=== PATIENT | female | born 2000 | race Two or more races ===

== ENCOUNTER 2024-04-14 17:21 | Inpatient (IN) | payer OTHER ==
[~2024-04-14] VITALS: Ht 167.6 cm; Wt 3.6 kg
[2024-04-14 17:27] VITALS: BP 131/75
[2024-04-14 17:50] LABS: PH,URINE 6.5 (5.0-8.0); URINE APPEARANCE Cloudy; URINE BILIRRUBIN Negative (NEGATIVE); URINE BLOOD Negative; URINE COLOR Yellow; URINE KETONE Negative (NEGATIVE); URINE LEUKOCYTE Large; URINE NITRATE Negative; URINE PROTEIN Negative (NEGATIVE); URINE UROBILINOGEN 0.2 E.U./dl
[2024-04-14 17:53] LABS: HEMATOCRIT 36.6 % (36.0-45.00); HEMOGLOBIN 12.2 g/dL (12.0-15.00); MEAN CORPUSCULAR HEMOGLOBIN 28.1 pg (27.00-32.0); MEAN CORPUSCULAR HGB CONC 33.4 g/dl (32.0-36.0); PLATELET COUNT 215 K/uL (150-450); RED BLOOD COUNT 4.35 M/uL (4.00-6.00); RED CELL DISTRIBUTION WIDTH 13.1 % (11.5-14.5)
[2024-04-14] MEDS ORDERED: PRENATAL TABLE1 EAC1 PO (17:55)
[2024-04-14 17:59] LABS: URINE BACTERIA 1536.8 uL (0.0-1933); URINE EPITHELIAL CELLS 31.2 uL (0.0-38.8); URINE WBC 130.4 uL (0.0-23.2)
[2024-04-14 18:00] LABS: URINE CAST 0.61 uL (0.0-1.40); URINE GLUCOSE 500 MG/DL (NEGATIVE); URINE RBC 1.9 uL (0.0-20.8)
[2024-04-14 18:13] LABS: ALBUMIN 2.9 gm/dL (3.4-5.0); BILIRUBIN TOTAL 0.21 mg/dL (0.3-1.2); CREATININE SERUM 0.59 mg/dL (0.55-1.02); GFR 126.31; GLOBULINA 3.6 G/DL (2.4-3.5); POTASSIUM 3.75 mEq/L (3.5-5.1); TOTAL PROTEIN 6.5 gm/dL (6.4-8.2)
[2024-04-14 18:18] LABS: INR 0.96; PARTIAL THROMBOPLASTIN TIME 26.2 SECONDS (22.0-34.0); PROTHROMBIN TIME 10.5 SECONDS (9.0-11.5)
[2024-04-14 21:15] VITALS: BP 136/76
[2024-04-14] MEDS ORDERED: RINGERS SOLUTION,LACTATED 1,000 ML IV SCH (23:15)
[2024-04-14 23:22] VITALS: BP 137/71
[2024-04-15 03:08] VITALS: BP 120/63
[2024-04-15 07:33] VITALS: BP 140/71
[2024-04-15 11:14] VITALS: BP 120/71
[2024-04-15] MEDS ORDERED: KETOROLAC TROMETHAMINE 60 MG VIAL IM STA (14:51)
[2024-04-15] MEDS ORDERED: RINGERS SOLUTION,LACTATED 1,000 ML IV SCH (15:00)
[2024-04-15] MEDS ORDERED: CHLORHEXIDINE GLUCONATE 120 ML BOTTLE TOP NR (15:00)
[2024-04-15] MEDS ORDERED: PROMETHAZINE HCL 25 MG/ML AMPUL IM PRN (15:00)
[2024-04-15] MEDS ORDERED: MEPERIDINE HCL/PF 50 MG/ML VIAL IM PRN (15:00)
[2024-04-15] MEDS ORDERED: OXYTOCIN 1,000 ML IV SCH (15:00)
[2024-04-15] MEDS ORDERED: MORPHINE SULFATE 4 MG/ML VIAL IV ONE (15:55)
[2024-04-15] MEDS ORDERED: ERYTHROMYCIN BASE OPHT 1GM EACH TUBE OP ONE (16:00)
[2024-04-15] MEDS ORDERED: OXYTOCIN 10 UNITS/ML VIAL IV ONE (16:00)
[2024-04-15] MEDS ORDERED: CEFOXITIN SODIUM 2,000 MG VIAL IV ONE (16:00)
[2024-04-15 16:57] VITALS: BP 123/77
[2024-04-15 19:56] LABS: HEMATOCRIT 36.9 % (36.0-45.00); HEMOGLOBIN 12.4 g/dL (12.0-15.00); MEAN CELL VOLUME 83.4 fL (80.00-100.00); MEAN CORPUSCULAR HEMOGLOBIN 27.9 pg (27.00-32.0); MEAN CORPUSCULAR HGB CONC 33.5 g/dl (32.0-36.0); PLATELET COUNT 184 K/uL (150-450); RED BLOOD COUNT 4.43 M/uL (4.00-6.00); RED CELL DISTRIBUTION WIDTH 13.4 % (11.5-14.5)
[2024-04-15 20:00] VITALS: BP 110/70
[2024-04-16 01:24] VITALS: BP 118/77
[2024-04-16] MEDS ORDERED: ACETAMINOPHEN 500 MG GEL..CAP PO PRN (08:15)
[2024-04-16] MEDS ORDERED: OxyCODONE HCL/APAP UD (PERCOCET) PO PRN (09:00)
[2024-04-16 10:11] VITALS: BP 126/78; O2SAT 98
[2024-04-16 16:13] VITALS: BP 119/79
[2024-04-17 01:12] VITALS: BP 111/72
[2024-04-17 08:00] VITALS: BP 131/84
[2024-04-17 16:00] VITALS: BP 130/83
[2024-04-17 20:00] VITALS: BP 112/73
[2024-04-18 01:34] VITALS: BP 118/76
[2024-04-18 08:00] VITALS: BP 115/76
[2024-04-18] MEDS ORDERED: IBUPROFEN800 MG PO (09:27)
== END 2024-04-18 13:55 | disposition home or self-care (01) | DRG 788 ==
LOC: LDR 17:21 → OB/GYN 17:21 → O/R 04-15 13:20 → OB/GYN 04-15 15:17
PROVIDERS: ADMIT Obstetrics & Gynecology; ATTEND Obstetrics & Gynecology
PROC: 4A1HXCZ Monitoring of Products of Conception, Cardiac Rate, External Approach (ICD-10-PCS; 2024-04-14)
PROC: 10D00Z1 Extraction of Products of Conception, Low, Open Approach (ICD-10-PCS; principal; 2024-04-15 13:30)
DX: O13.4 Gestational [pregnancy-induced] hypertension without significant proteinuria, complicating childbirth (principal); Z3A.39 39 weeks gestation of pregnancy; Z37.0 Single live birth; Z20.822 Contact with and (suspected) exposure to COVID-19

== ENCOUNTER 2024-04-25 20:25 | Emergency (ER) | payer OTHER ==
[~2024-04-25] VITALS: Ht 167.6 cm; Wt 77.6 kg
[~2024-04-25 20:25] MED LIST: IBUPROFEN800 MG PO; PRENATAL TABLE1 EAC1 PO
[2024-04-25] MEDS ORDERED: TYLENOL ARTHRI650 MG PO (21:10)
== END 2024-04-26 00:14 | disposition home or self-care (01) ==
LOC: ER 20:27
DX: O90.89 Other complications of the puerperium, not elsewhere classified (principal); Z88.8 Allergy status to other drugs, medicaments and biological substances; D56.0 Alpha thalassemia